=== PATIENT | female | born 1970 | race African-American/Black ===

== ENCOUNTER 2018-09-06 02:22 | Emergency (ER) | payer BC ==
[~2018-09-06] VITALS: Ht 167.6 cm; Wt 142.9 kg
[2018-09-06 04:10] LABS: BILIRUBIN,URINE SMALL (NEG); CLARITY,URINE CLOUDY; COLOR,URINE AMBER; NITRITE,URINE POSITIVE (NEG); PH,URINE 5.5; PROTEIN,URINE 100 mg/dL (NEG-TRACE)
[2018-09-06 04:18] LABS: SQUAMOUS EPITHELIAL CELL,UR MOD /LPF
[2018-09-06 04:19] LABS: BACTERIA,URINE MANY /HPF (0-FEW); WBC,URINE 20-40 /HPF (0-4)
[2018-09-06] MEDS ORDERED: MORPHINE SULFATE 4 MG/ML VIAL. IV ONE (04:30)
[2018-09-06] MEDS ORDERED: IV NORMAL SALINE 1000ML BAG 1,000 ML IV ONE (04:30)
[2018-09-06] MEDS ORDERED: ONDANSETRON PF 4 MG/2 ML VIAL. IV ONE (04:30)
[2018-09-06 04:36] LABS: BASO # 0.1 x10^3/uL (0.0-0.2); BASO % 1 % (0-3); EOS % 0 % (0-3); HEMATOCRIT 34.7 % (36.0-47.0); HEMOGLOBIN 11.6 g/dL (12.0-15.5); LYMPH # 2.1 x10^3/uL (1.0-4.8); LYMPH % 16 % (24-48); MEAN CORPUSCULAR HEMOGLOBIN 29 pg (25-35); MEAN CORPUSCULAR HGB CONC 33 g/dL (31-37); MEAN CORPUSCULAR VOLUME 87 fL (79-100); MONO # 0.9 x10^3/uL (0.0-1.1); MONO % 7 % (0-9); NEUT # 9.9 x10^3/uL (1.8-7.7); NEUT % 76 % (31-73); PLATELET COUNT 265 x10^3/uL (140-400); RED BLOOD COUNT 4.01 x10^6/uL (3.50-5.40); RED CELL DISTRIBUTION WIDTH 14.2 % (11.5-14.5); WHITE BLOOD COUNT 13.1 x10^3/uL (4.0-11.0)
[2018-09-06 04:45] LABS: CALCIUM 9.2 mg/dL (8.5-10.1); CREATININE 1.1 mg/dL (0.6-1.0); GFR 64.7; POTASSIUM 3.8 mmol/L (3.5-5.1)
[2018-09-06 04:50] LABS: ALBUMIN 2.7 g/dL (3.4-5.0); ALBUMIN/GLOBULIN RATIO 0.5 (1.0-1.7); TOTAL BILIRUBIN 0.6 mg/dL (0.2-1.0); TOTAL PROTEIN 8.3 g/dL (6.4-8.2)
--- NOTE | 2018-09-06 05:08 | PHYS DOC ---
Past Medical History Past Medical History: Asthma, Diabetes-Type II, Hypertension Past Surgical History: Cholecystectomy, Alcohol Use: None Drug Use: None Adult General Chief Complaint Chief Complaint: ABDOMINAL PAIN HPI HPI Patient is a 47 year old female presenting with abdominal pain. She says it feels like her prior episodes of diverticulitis she's feeling in her left upper quadrant as well as in her central and right lower abdomen abdomen, feels sharp severe onset couple of days ago no vomiting chest the pain she did try to have a bowel movement it really was having trouble coming out she has had her gallbladder out as well as 5 C-sections the pain is moderate to severe slowly worsening with time "I can feel the poop going through my intestines" Review of Systems Review of Systems Constitutional: Denies fever or chills [] Eyes: Denies change in visual acuity, redness, or eye pain [] HENT: Denies nasal congestion or sore throat [] Respiratory: Denies cough or shortness of breath [] Cardiovascular: Musculoskeletal: Denies back pain or joint pain [] Integument: Denies rash or skin lesions [] Neurologic: Denies headache, focal weakness or sensory changes [] All other systems were reviewed and found to be within normal limits, except as documented in this note. Current Medications Current Medications Current Medications Medications (Trade) Dose Ordered Sig/Stephanie Start Time Stop Time Status Last Admin Dose Admin Levofloxacin (Levaquin) 750 mg 1X ONCE 09/06/18 05:15 09/06/18 05:16 DC 09/06/18 05:31 750 MG Morphine Sulfate (Morphine Sulfate) 4 mg 1X ONCE 09/06/18 04:30 09/06/18 04:31 DC 09/06/18 04:36 4 MG Ondansetron HCl (Zofran) 4 mg 1X ONCE 09/06/18 04:30 09/06/18 04:31 DC 09/06/18 04:37 4 MG Sodium Chloride 1,000 ml @ 1,000 mls/hr 1X ONCE 09/06/18 04:30 09/06/18 05:29 DC 09/06/18 04:36 1,000 MLS/HR Allergies Allergies Allergies Coded Allergies Type Severity Reaction Last Updated Verified shellfish derived Allergy Severe 09/06/18 Yes Penicillins Allergy Intermediate 09/06/18 Yes Physical Exam Physical Exam Constitutional: Well developed, well nourished, no acute distress, non-toxic appearance. [] HENT: Normocephalic, atraumatic, bilateral external ears normal, oropharynx moist, no oral exudates, nose normal. [] Eyes: PERRLA, EOMI, conjunctiva normal, no discharge. [] Neck: Normal range of motion, no tenderness, supple, no stridor. [] Cardiovascular:Heart rate regular rhythm, no murmur [] Lungs & Thorax: Bilateral breath sounds clear to auscultation [] Abdomen: Bowel sounds normal, soft left upper quadrant and right lower quadrant tenderness pushed my hand away with light palpation Skin: Warm, dry, no erythema, no rash. [] Back: No tenderness, no CVA tenderness. [] Extremities: No tenderness, no cyanosis, no clubbing, ROM intact, no edema. [] Neurologic: Alert and oriented X 3, normal motor function, normal sensory f unction, no focal deficits noted. [] Psychologic: Affect normal, judgement normal, mood normal. [] Current Patient Data Vital Signs Vital Signs Date Time Temp Pulse Resp B/P (MAP) Pulse Ox O2 Delivery O2 Flow Rate FiO2 09/06/18 04:36 16 97 09/06/18 03:24 98.4 89 145/89 (107) Room Air 98.4 Lab Values Laboratory Tests Test 09/06/18 02:20 09/06/18 04:30 Urine Collection Type Unknown Urine Color [place] Urine Clarity Cloudy Urine pH 5.5 Urine Specific [place] 1.025 Urine Protein 100 mg/dL (NEG-TRACE) Urine Glucose (UA) 250 mg/dL (NEG) Urine Ketones (Stick) Trace mg/dL (NEG) Urine Blood Small (NEG) Urine Nitrite Positive (NEG) Urine Bilirubin Small (NEG) Urine Urobilinogen Dipstick 1.0 mg/dL (0.2 mg/dL) Urine Leukocyte Esterase Moderate (NEG) Urine RBC 3-5 /HPF (0-2) Urine WBC 20-40 /HPF (0-4) Urine Squamous Epithelial Cells Mod /LPF Urine Bacteria Many /HPF (0-FEW) Urine Mucus Mod /LPF White Blood Count 13.1 x10^3/uL (4.0-11.0) H Red Blood Count 4.01 x10^6/uL (3.50-5.40) Hemoglobin 11.6 g/dL (12.0-15.5) L Hematocrit 34.7 % (36.0-47.0) L Mean Corpuscular Volume 87 fL (79-100) Mean Corpuscular Hemoglobin 29 pg (25-35) Mean Corpuscular Hemoglobin Concent 33 g/dL (31-37) Red Cell Distribution Width 14.2 % (11.5-14.5) Platelet Count 265 x10^3/uL (140-400) Neutrophils (%) (Auto) 76 % (31-73) H Lymphocytes (%) (Auto) 16 % (24-48) L Monocytes (%) (Auto) 7 % (0-9) Eosinophils (%) (Auto) 0 % (0-3) Basophils (%) (Auto) 1 % (0-3) Neutrophils # (Auto) 9.9 x10^3/uL (1.8-7.7) H Lymphocytes # (Auto) 2.1 x10^3/uL (1.0-4.8) Monocytes # (Auto) 0.9 x10^3/uL (0.0-1.1) Eosinophils # (Auto) 0.0 x10^3/uL (0.0-0.7) Basophils # (Auto) 0.1 x10^3/uL (0.0-0.2) Sodium Level 135 mmol/L (136-145) L Potassium Level 3.8 mmol/L (3.5-5.1) Chloride Level 100 mmol/L (98-107) Carbon Dioxide Level 27 mmol/L (21-32) Anion Gap 8 (6-14) Blood Urea Nitrogen 11 mg/dL (7-20) Creatinine 1.1 mg/dL (0.6-1.0) H Estimated GFR (Cockcroft-Gault) 64.7 BUN/Creatinine Ratio 10 (6-20) Glucose Level 182 mg/dL (70-99) H Calcium Level 9.2 mg/dL (8.5-10.1) Total Bilirubin 0.6 mg/dL (0.2-1.0) Aspartate Amino Transferase (AST) 17 U/L (15-37) Alanine Aminotransferase (ALT) 18 U/L (14-59) Alkaline Phosphatase 64 U/L (46-116) Troponin I Quantitative < 0.017 ng/mL (0.000-0.055) Total Protein 8.3 g/dL (6.4-8.2) H Albumin 2.7 g/dL (3.4-5.0) L Albumin/Globulin Ratio 0.5 (1.0-1.7) L Lipase 74 U/L (73-393) Laboratory Tests 09/06/18 04:30 Laboratory Tests 09/06/18 04:30 EKG EKG []Normal sinus rhythm rate 96 no acute ischemic changes noted interpreted by me the time of encounter Radiology/Procedures Radiology/Procedures [] Impressions: Comparison: None. Technique: Helical CT imaging of the abdomen and pelvis is performed without IV or oral contrast. Findings: Evaluation of solid organs and bowel is limited without oral and IV contrast, decreasing sensitivity for detection of pathology. Moderate atelectasis in the bilateral lower lobes. Cardiac size normal. Cholecystectomy. Probable normal variant Aaron lobe. The liver is homogeneous. Spleen, pancreas, adrenal glands, abdominal aorta, and kidneys are normal. Stomach unremarkable. No dilated small bowel. The appendix is normal. No colon wall thickening. There are a few diverticula of the distal colon. No abdominal adenopathy or free fluid. Urinary bladder is not well distended. Small calcification near the proximal sigmoid colon could be sequela of fat necrosis or prior epiploic appendagitis. Uterus unremarkable. Small right adnexal calcification. Ovaries are symmetric in size. No pelvic free fluid. No acute bone abnormality. IMPRESSION: 1. No acute abdominal or pelvic abnormality. 2. Moderate bilateral lower lobe atelectasis. 3. Mild distal colon diverticulosis. Electronically signed by: aCstro Padilla MD (09/06/2018 5:29 AM) [facility] DICTATED and SIGNED BY: CASTRO PADILLA MD DATE: 09/06/18 0529 Course & Med Decision Making Course & Med Decision Making Pertinent Labs and Imaging studies reviewed. (See chart for details) []47 show female with somewhat nonspecific abdominal pain on initial evaluation left upper quadrant and right lower quadrant but also a history of diverticulitis and she says it feels like that. Labs are actually looking pretty good overall there may be a urinary tract infection CT scan abdomen and pelvis is currently pending. final read of ct looked good, patient feels fairly confident that she does have diverticulitis she feels exactly the same as she did last time. I suppose sub- radiographic would be possible in addition the patient definite has a urinary tract infection so we will just add some Flagyl to the Cipro and also given a prescription for short course of pain medication. Patient is agreeable to this plan return precautions discussed if not improved in the next couple of days. Dragon Disclaimer Dragon Disclaimer This electronic medical record was generated, in whole or in part, using a voice recognition dictation system. Departure Departure Impression: Primary Impression: Urinary tract infection Disposition: HOME, SELF-CARE Condition: STABLE Referrals: UNKNOWN PCP NAME (PCP) Scripts Hydrocodone/Apap 5-325 (NORCO 5-325 TABLET) 1 Each Tablet 1-2 EACH PO PRN Q6HRS PRN for PAIN, #15 as needed for pain Prov: DONNY DELGADILLO MD 09/06/18 Metronidazole (FLAGYL) 500 Mg Tablet 1 TAB PO BID, #14 TAB Prov: DONNY DELGADILLO MD 09/06/18 Ciprofloxacin Hcl (CIPROFLOXACIN HCL) 500 Mg Tablet 1 TAB PO BID, #14 TAB Prov: DONNY DELGADILLO MD 09/06/18 DONNY DELGADILLO MD Sep 06, 2018 05:08
--- NOTE | 2018-09-06 05:32 | RAD ---
PQRS Compliance Statement: One or more of the following individualized dose reduction techniques were utilized for this examination: 1. Automated exposure control 2. Adjustment of the mA and/or kV according to patient size 3. Use of iterative reconstruction technique CT ABDOMEN PELVIS WO CONTRAST Clinical Indication: Diffuse abdominal pain, greatest right lower quadrant. Comparison: None. Technique: Helical CT imaging of the abdomen and pelvis is performed without IV or oral contrast. Findings: Evaluation of solid organs and bowel is limited without oral and IV contrast, decreasing sensitivity for detection of pathology. Moderate atelectasis in the bilateral lower lobes. Cardiac size normal. Cholecystectomy. Probable normal variant Aaron lobe. The liver is homogeneous. Spleen, pancreas, adrenal glands, abdominal aorta, and kidneys are normal. Stomach unremarkable. No dilated small bowel. The appendix is normal. No colon wall thickening. There are a few diverticula of the distal colon. No abdominal adenopathy or free fluid. Urinary bladder is not well distended. Small calcification near the proximal sigmoid colon could be sequela of fat necrosis or prior epiploic appendagitis. Uterus unremarkable. Small right adnexal calcification. Ovaries are symmetric in size. No pelvic free fluid. No acute bone abnormality. IMPRESSION: 1. No acute abdominal or pelvic abnormality. 2. Moderate bilateral lower lobe atelectasis. 3. Mild distal colon diverticulosis. Electronically signed by: Castro Craft MD (09/06/2018 5:29 AM) [facility]
[2018-09-06] MEDS ORDERED: HYDR-3164 PO (05:49)
[2018-09-06] MEDS ORDERED: METR500T PO (05:49)
[2018-09-06] MEDS ORDERED: CIPR500T PO (05:49)
[2018-09-06 06:00] VITALS: BP 113/58
--- NOTE | 2018-09-07 07:25 | EKG ---
[facility] [address] [place] [address] Test Date: 2018-09-06 Test Time: 04:17:28 Pat Name: TAI VALENTIN Department: Room: Gender: F Stamping Machine Operator: : 1970 Requested By: DONNY DELGADILLO Order Number: [id number] Reading MD: Measurements Intervals Pilot Rate: 96 P: 56 DE: 158 QRS: 36 QRSD: 96 T: 7 QT: 344 QTc: 441 Interpretive Statements SINUS RHYTHM NO SPECIFIC ECG ABNORMALITIES RI6.01 Unconfirmed report No previous ECG available for comparison
== END 2018-09-06 06:00 | disposition home or self-care (01) ==
LOC: ER 02:22
DX: N39.0 Urinary tract infection, site not specified (principal); R10.12 Left upper quadrant pain; J45.909 Unspecified asthma, uncomplicated; I10 Essential (primary) hypertension; Z90.49 Acquired absence of other specified parts of digestive tract; Z98.890 Other specified postprocedural states; Z88.0 Allergy status to penicillin; Z91.013 Allergy to seafood
CPT/HCPCS: 36415; 74176; 80053; 81001; 81025; 83690; 84484; 85025; 87086; 87186; 93005; 96374; 96375; 99285; J2270; J2405; J7030